=== PATIENT | female | born 1970 | race Caucasian/White ===

== ENCOUNTER 2023-07-03 17:03 | Emergency (ER) | payer BC, SELFPAY ==
--- NOTE | 2023-07-03 17:07 | ED.FEMALEGU ---
HPI - Female Genitourinary General Chief complaint: Urogenital-Female Stated complaint: POSS YEAST INFECTION/UTI SYMPTOMS/HEADACHE/EARS Time Seen by Provider: 07/03/23 17:07 Source: patient and RN notes reviewed History of Present Illness HPI Narrative: Patient is a 52-year-old female presents to urgent care with complaints of a possible yeast infection or UTI. Patient states that she has had vaginal discharge, urinary frequency and urgency for the past week. Patient states that she did use a different soap and believes that may have caused a yeast infection. Patient states that she has had them in the past but was able to combat using a sensitive soap and not taking baths. Patient has been using Vagisil for the vaginal itch. Denies any hematuria or vomiting. States that she has had some nausea but does have Meniere's disease and has not been taking her medication appropriately. No other acute complaints. Patient aware of the plan of care. Some parts of this dictation were generated by voice recognition software and may contain typographical and/or grammatical inaccuracies. Review of Systems Review of Systems: CONSTITUTIONAL: Denies fever, chills, or sweats. EYES: Denies visual changes, redness, or discharge. ENT: Denies rhinorrhea, congestion, sore throat,. Reports bilateral otalgia CARDIOVASCULAR: Denies chest pain, palpitations, or edema. RESPIRATORY: Denies cough or dyspnea. GASTROINTESTINAL: Denies abdominal pain, nausea, vomiting, or diarrhea. GENITOURINARY: Reports of urinary frequency, urgency, dysuria and vaginal discharge SKIN: Denies rash or itching. MUSCULOSKELETAL: Denies back pain, joint pain, or myalgia. NEUROLOGIC: Reports of intermittent headache All other systems reviewed are negative, except as documented in HPI. PMFSH Comments At the time of my signature, I reviewed and agree with the nursing past medical, surgical, social, and family history. There is no relevant family history pertinent to the patient complaint. Exam Narrative: GENERAL: This is a well-nourished, well-developed patient, in no apparent distress. HEAD: normocephalic, atraumatic. EYES: PERRL. Sclera clear/white. Vision is grossly intact. EARS: External ears normal, auditory canals clear and without drainage, TMs normal without perforation. Hearing grossly intact. NOSE: External nose normal with no obvious nasal discharge, nares without redness, no rhinorrhea. THROAT: Mucous membranes moist NECK: Neck supple GASTROINTESTINAL: Abdomen soft, scant suprapubic tenderness on palpation, nondistended. Bowel sounds are active. SKIN: warm, intact with no suspicious lesions or rash, good texture and turgor. NEURO: awake, alert, and oriented to person, place and time. There were no obvious focal neurologic abnormalities. EXTREMITIES: No clubbing, cyanosis, or edema. BACK: Mild right CVA tenderness Course Course Level of Care: Express Care Visit Vital Signs Vital signs: Vital Signs Temperature 97.9 F 07/03/23 17:22 Pulse Rate 70 07/03/23 17:22 Respiratory Rate 16 07/03/23 17:22 Blood Pressure 130/73 07/03/23 17:22 Pulse Oximetry 99 07/03/23 17:22 Temperature 97.9 F 07/03/23 17:22 Pulse Rate 70 07/03/23 17:22 Respiratory Rate 16 07/03/23 17:22 Blood Pressure 130/73 07/03/23 17:22 Pulse Oximetry 99 07/03/23 17:22 Reviewed MDM - Female Genitourinary MDM Narrative Medical decision making narrative: Reviewed lab results with the patient. She is aware that urinalysis does show possibility of bacteria. Therefore will treat for both yeast infection and bacterial urinary tract infection. Advised patient to take 1 Diflucan dose now, finish the antibiotic, and repeat the 2nd dose of Diflucan. We will culture the urine and call only if medication changes necessary. If you wish to check the culture results of your urine, you may call in 3 days. Be sure to eat and drink with the medications. Use unsce
[2023-07-03 17:22] VITALS: BP 130/73; PULSE 70; RESP 16; TEMP 36.6; O2SAT 99
== END 2023-07-03 17:42 | disposition home or self-care (01) ==
PROVIDERS: Emergency Provider Nurse Practitioner Family
DX: B37.31 Acute candidiasis of vulva and vagina (principal); N39.0 Urinary tract infection, site not specified; K21.9 Gastro-esophageal reflux disease without esophagitis; F41.9 Anxiety disorder, unspecified
CPT/HCPCS: 81003; 87077; 87086; 87186; 99213; G0463